=== PATIENT | female | born 1930 | race Caucasian/White ===

== ENCOUNTER 2018-05-31 06:17 | Day surgery (SDC) | payer MEDICARE, OTHER ==
[~2018-05-31] VITALS: Ht 152.4 cm; Wt 75.3 kg
--- NOTE | 2018-05-31 07:23 | PREAC ---
Date/Time of Note Date/Time of Note DATE: 05/31/18 TIME: 07:22 Anesthesia Eval and Record Evaluation Time Pre-Procedure Interview DATE: 05/31/18 TIME: 07:22 Age 87 Sex female NPO: 8 hrs Preoperative diagnosis GERD Planned procedure EGD Past Medical History Past Medical History: Includes Cardio: HTN, Dyslipidemia Endo: Diabetes Surgery & Anesthesia Issues No known issue Meds Anticoagulation: No Beta Beth within 24 hr: No Reason Beta Beth not given: Pt. not on B-Beth Meds reviewed: Yes Allergies Allergies Reviewed: Yes Labs/Studies Labs Reviewed: Reviewed by anesthesiologist test: N/A Studies: ECG Pre-procedure Exam Airway: Adequate mouth opening, Adequate thyromental dist Mallampati: Mallampati II Teeth: Normal Lung: Normal Heart: Normal ASA Physical Status ASA physical status: 3 Emergency: None Planned Anesthetic General/MAC: Mask, MAC Pre-operative Attestations Prior to commencing anesthesia and surgery, the patient was re-evaluated, there was verification of: *The patient's identity *The results of appropriate recent lab work and preoperative vital signs *The above evaluation not changing prior to induction *Anesthetic plan, risk benefits, alternative and complications discussed with patient/family; questions answered; patient/family understands, accepts and wishes to proceed. VERN SALINAS May 31, 2018 07:23
[2018-05-31 07:30] VITALS: Ht 152.4 cm; Wt 75.3 kg
[2018-05-31 07:32] VITALS: BP 186/80; PULSE 56; RESP 18
[2018-05-31] MEDS ORDERED: MIRT15TA5 PO (07:39)
[2018-05-31] MEDS ORDERED: METO10TA92 PO (07:39)
[2018-05-31] MEDS ORDERED: LEVEM (07:39)
[2018-05-31] MEDS ORDERED: LOSA1TAB28 PO (07:39)
[2018-05-31] MEDS ORDERED: OMEP20CA16 PO (07:39)
[2018-05-31] MEDS ORDERED: ROSU10TA55 PO (07:39)
[2018-05-31] MEDS ORDERED: METO-319 PO (07:39)
[2018-05-31] MEDS ORDERED: CLOP75TA27 PO (07:39)
[2018-05-31] MEDS ORDERED: OXYC1TAB6 PO (07:39)
[2018-05-31] MEDS ORDERED: NOVO3I SC (07:39)
[2018-05-31] MEDS ORDERED: CHOL100062 PO (07:39)
[2018-05-31] MEDS ORDERED: LOPE-117 PO (07:39)
--- NOTE | 2018-05-31 12:03 | PAC ---
Date/Time of Note Date/Time of Note DATE: 05/31/18 TIME: 12:03 Post-Anesthesia Notes Post-Anesthesia Note Last documented vital signs Vital Signs Date Temp Pulse Resp B/P (MAP) Pulse Ox O2 O2 Flow FiO2 Time Delivery Rate 05/31/18 98.0 56 18 186/80 99 Room Air 07:32 (115) Activity: WNL Respiratory function: WNL Cardiovascular function: WNL Mental status: Baseline Pain reasonably controlled: Yes Hydration appropriate: Yes Nausea/Vomiting absent: Yes VERN SALINAS May 31, 2018 12:03
== END 2018-05-31 15:25 | disposition home or self-care (01) ==
LOC: GIL 06:17
PROVIDERS: ATTEND Internal Medicine Gastroenterology
DX: K29.30 Chronic superficial gastritis without bleeding (principal); I10 Essential (primary) hypertension; E11.9 Type 2 diabetes mellitus without complications
CPT/HCPCS: 82962; 88305; 88312